=== PATIENT | male | born 1950 | race Caucasian/White ===

== ENCOUNTER 2017-04-28 16:01 | Inpatient (IN) | payer OTHER, MEDICAID ==
[~2017-04-28] VITALS: Ht 177.8 cm; Wt 76.0 kg
[2017-04-28] MEDS ORDERED: VANCOMYCIN 1 GM (PMX) 250 ML IVPB SCH (18:30)
[2017-04-28] MEDS ORDERED: PIPER-TAZO 3.375 GM IV (PMX) 100 ML IVPB ONE (18:30)
[2017-04-28 18:57] LABS: ADD SCAN DIFF NO
[2017-04-28 19:00] LABS: BASOPHILS % 0.5 % (0.0-2.0); EOSINOPHILS # 0.2 10^3/ul (0.0-0.5); EOSINOPHILS % 2.6 % (0.0-7.0); HEMATOCRIT 48.9 % (42.0-52.0); LYMPHOCYTES # 2.4 10^3/ul (0.8-2.9); MEAN CORPUSCULAR HEMOGLOBIN 30.5 pg (29.0-33.0); MEAN CORPUSCULAR HGB CONC 32.7 g/dl (32.0-37.0); MEAN CORPUSCULAR VOLUME 93.1 fl (82.0-101.0); MEAN PLATELET VOLUME 9.9 fl (7.4-10.4); MONOCYTE # 0.5 10^3/ul (0.3-0.9); MONOCYTES % 6.9 % (0.0-11.0); NEUTROPHIL # 4.5 10^3/ul (1.6-7.5); NEUTROPHILS % 58.6 % (39.0-77.0); PLATELET COUNT 229 10^3/UL (140-415); RED BLOOD COUNT 5.25 10^6/ul (4.70-6.10); RED CELL DISTRIBUTION WIDTH 12.7 % (11.5-14.5); WHITE BLOOD COUNT 7.7 10^3/ul (4.8-10.8)
[2017-04-28 19:13] LABS: C-REACTIVE PROTEIN 1.8 mg/dl (0.0-0.9); CALCIUM 9.5 mg/dl (8.4-10.2); CREATININE 1.16 mg/dl (0.61-1.24)
--- NOTE | 2017-04-28 19:26 | ERA ---
ER Documentation Chief Complaint Date/Time DATE: 04/28/17 TIME: 19:23 Chief Complaint RIGHT FOOT/ANKLE SWELLING/REDNESS/PAIN X10 DAYS HPI This a pleasant 67-year-old male with a history of HIV. The patient said 3 weeks ago he had blood work and showed his viral load was undetectable and he had a "good" CD4 count. Patient was vacationing in [facility] last week when he accidentally stubbed his right toe on a chair. He developed a slight blister which he popped. The next day he subsequently had some erythema to the toe that has spread up into his right foot and distal leg. The patient was seen in [place] and received shots of Rocephin intramuscularly for 5 days in a row as well as being placed on Cipro. The patient states that he has never had a documented fever does not have any shortness of breath chest pain and has only mild pain in the leg. He does have erythema and swelling to the right foot and distal leg ROS All systems reviewed and are negative except as per history of present illness. Allergies Allergies: Coded Allergies: No Known Allergy (Unverified , 04/28/17) PMhx/Soc Medical and Surgical Hx: pt denies Medical Hx, pt denies Surgical Hx Hx Miscellaneous Medical Probl: Yes (HIV +) Hx Alcohol Use: No Hx Substance Use: No FmHx Family History: No coronary disease Physical Exam Vitals Vital Signs Date Time Temp Pulse Resp B/P Pulse Ox O2 Delivery O2 Flow Rate FiO2 04/28/17 19:06 63 19 157/84 98 Room Air 04/28/17 16:05 97.9 85 20 157/74 95 Physical Exam Const: Well-developed, well-nourished Head: Atraumatic, normocephalic Eyes: Normal Conjunctiva, PERRLA, EOMI, normal sclera, no nystagmus ENT: Normal External Ears, Nose and Mouth, moist mucus membranes. Neck: Full range of motion. No meningismus, no lymphadenopathy. Resp: Clear to auscultation bilaterally, no wheezing, rhonchi, rales Cardio: Regular rate and rhythm, no murmurs, S1 S2 present Abd: Soft, non tender x 4, non distended. Normal bowel sounds, no guarding or rebound, no pulsitile abdominal masses or bruits Skin: No petechiae or rashes, no ecchymosis , no maculopapular rash Back: No midline or flank tenderness Ext: No cyanosis, or edema, FROM x 4, the right distal great toe has a scab-like lesion at the tip. The right foot and distal leg erythema with swelling and warmth consistent with cellulitis, neurovascularly intact x 4 Neur: Awake and alert, STR 5/5 x 4, sensation intact x 4, no focal findings, cerebellum intact Psych: Normal Mood and Affect Result Diagram: 04/28/17183304/28/171833 Results 24 hrs Laboratory Tests Test 04/28/17 18:34 White Blood Count 7.710^3/ul Red Blood Count 5.2510^6/ul Hemoglobin 16.0g/dl Hematocrit 48.9% Mean Corpuscular Volume 93.1fl Mean Corpuscular Hemoglobin 30.5pg Mean Corpuscular Hemoglobin Concent 32.7g/dl Red Cell Distribution Width 12.7% Platelet Count 48685^3/UL Mean Platelet Volume 9.9fl Neutrophils % 58.6% Lymphocytes % 31.0% Monocytes % 6.9% Eosinophils % 2.6% Basophils % 0.5% Nucleated Red Blood Cells % 0.0/100WBC Neutrophils # 4.510^3/ul Lymphocytes # 2.410^3/ul Monocytes # 0.510^3/ul Eosinophils # 0.210^3/ul Basophils # 0.010^3/ul Nucleated Red Blood Cells # 0.010^3/ul Erythrocyte Sedimentation Rate 18mm/Hr Sodium Level 141mmol/L Potassium Level 4.0mmol/L Chloride Level 105mmol/L Carbon Dioxide Level 27mmol/L Anion Gap 13 Blood Urea Nitrogen 16mg/dl Creatinine 1.16mg/dl Glucose Level 86mg/dl Calcium Level 9.5mg/dl C-Reactive Protein 1.8mg/dl Current Medications Medications (Trade) Dose Ordered Sig/Tierney Route PRN Reason Start Time Stop Time Status Last Admin Dose Admin Vancomycin HCl 250 ml @ 125 mls/hr ONCE IVPB 04/28/17 18:30 04/28/17 20:29 DC 04/28/17 19:35 Piperacillin Sod/ Tazobactam Sod (Zosyn 3.375gm/ 100 ml (Pmx)) 100 ml @ 200 mls/hr ONCE ONCE IVPB 04/28/17 18:30 04/28/17 18:59 DC 04/28/17 18:44 Procedures/MDM Patient received intravenous Rocephin and vancomycin for cellulitis. Patient is felt outpatient therapy on Cipro as well as getting Rocephin for 5 days in a row. I will put him in the hospital for intravenous antibiotic therapy X-rays of the right foot and ankle demonstrate soft tissue swelling but no gas in the soft tissue per radiology Departure Diagnosis: Primary Impression: Cellulitis of right lower extremity Condition: Stable DEXTER TAN DO Apr 28, 2017 19:25
--- NOTE | 2017-04-28 20:33 | RADRPT ---
PROCEDURE: XR Right Ankle. CLINICAL INDICATION: Right ankle pain. TECHNIQUE: 3 views. Frontal, lateral, and oblique. COMPARISON: None. FINDINGS: There is no fracture or dislocation. There is diffuse soft tissue swelling. Articular surfaces are intact. There is no lytic or blastic lesion. There is no radiopaque foreign body. IMPRESSION: 1. Diffuse soft tissue swelling. 2. Otherwise normal images of the right ankle. RPTAT: QQ .Adrian Rivera MD, MD Date Time Electronically viewed and signed by .Adrian Rivera MD, on 04/28/2017 20:32 .R/
--- NOTE | 2017-04-28 20:33 | RADRPT ---
PROCEDURE: XR Right Foot. CLINICAL INDICATION: Right foot pain. TECHNIQUE: Three views. Frontal, lateral, and oblique. COMPARISON: None. FINDINGS: There is no fracture or dislocation. There is diffuse soft tissue swelling. Articular surfaces are intact. There is no lytic or blastic lesion. There is no radiopaque foreign body. IMPRESSION: 1. Diffuse soft tissue swelling. 2. Otherwise normal images of the right foot. RPTAT: QQ .Adrian Rivera MD, MD Date Time Electronically viewed and signed by .Adrian Rivera MD, on 04/28/2017 20:33 .R/
--- NOTE | 2017-04-28 20:50 | HP ---
Date/Time of Note Date/Time of Note DATE: 04/28/17 TIME: 20:49 Assessment/Plan VTE Prophylaxis VTE Prophylaxis Intervention: LMWH Assessment/Plan Chief Complaint/Hosp Course This is a 67-year-old male being admitted to the [facility] floor for: #1 right lower extremity cellulitis: There appears to be an abrasion of the right big toe which which possibly could be the entry point for the infection. He was previously treated with outpatient antibiotics with no resolution. At the current time will continue the patient on vancomycin and clindamycin IV. Will consult infectious disease for further antibiotic management. #2 HIV: Patient states he is compliant with medications and apparently has a good CD4 count according to him. He has a follow-up appointment with his HIV doctor on Sunday. At the current time will order a CD4 count and HIV PCR load. Continue home medications and consult infectious disease. #3 hypertension: Continue home medications. #4 DVT and GI prophylaxis: Lovenox, Protonix Further treatment strategy will be implemented as per the clinical course. Problems: HPI/ROS Admit Date/Time Admit Date/Time Hx of Present Illness Chief complaint: Right foot infection This a pleasant 67-year-old male with a history of HIV. The patient said 3 weeks ago he had blood work and showed his viral load was undetectable and he had a "good" CD4 count. Patient was vacationing in [facility] last week when he accidentally stubbed his right toe on a chair. He developed a slight blister which he popped. The next day he subsequently had some erythema to the toe that has spread up into his right foot and distal leg. The patient was seen in [place] and received shots of Rocephin intramuscularly for 5 days in a row as well as being placed on Cipro. The patient states that he has never had a documented fever does not have any shortness of breath chest pain and has only mild pain in the leg. My examination he does have erythema and swelling to the distal right lower extremity as well as foot. Allergies: NKDA Medications: See SHA SALEH Const: As per HPI Eyes : No pain discharge or redness or change in visual acuity ENT: No pain, sore throat, congestion, congestion, dysphagia or discharge Respiratory: No shortness of breath, cough, sputum, wheezing, or pleuritic pain Cardiovascular: No chest pain, palpitation, PND, or edema GI : no change in appetite, abdominal pain, nausea, vomiting, diarrhea, constipation, or change in the color his stool Genitourinary: No dysuria, hematuria, flank pain , discharge or CVA tenderness Musculoskeletal: As per HPI Skin: As per HPI Neuro: No headache, dizziness, syncope, seizure, focal weakness Endocrine: No polyuria, polydipsia, temperature intolerance Psych: No hallucination, depression, anxiety or suicidal ideation PMH/Family/Social Past Medical History HIV, hypertension Past Surgical History Hernia repair Family History Significant Family History: no pertinent family hx Social History Alcohol Use: none Smoking Status: Current every day smoker (6 cigarettes per day 40 years) Drug Use: none Exam/Review of Systems Vital Signs Vitals Vital Signs Date Time Temp Pulse Resp B/P Pulse Ox O2 Delivery O2 Flow Rate FiO2 04/28/17 19:06 63 19 157/84 98 Room Air 04/28/17 16:05 97.9 Exam Exam General: Patient is well-developed well-nourished The patient is alert oriented -3 lying comfortably in bed. HEENT: Atraumatic, normocephalic. The pupils are equal, round and reactive. Extraocular motor are intact Neck: Supple with full range of motion. No rigidity or meningismus Chest: Nontender Lungs: Clear to auscultation bilaterally no crackles rales or wheezing Heart: Normal S1-S2, Regular rhythm and rate. No murmur, S3, or S4 Abdomen: Soft , nontender, nondistended , bowel sounds are present. No guarding no rebound tenderness , No masses or organomegaly. No costovertebral temporal angle mass Extremities: Right lower extremity: Distal leg redness swelling noted, right foot anterior aspect swelling and redness noted, abrasion/lesion of the big toe no bleeding or pus noted. Neurologic: Normal mental status, speech normal, cranial nerves II through XII are intact, motor and sensory are intact, no focal weakness Skin: Right lower extremity: Distal leg redness swelling noted, right foot anterior aspect swelling and redness noted, abrasion/lesion of the big toe no bleeding or pus noted. Additional Comments PROCEDURE: XR Right Ankle. CLINICAL INDICATION: Right ankle pain. TECHNIQUE: 3 views. Frontal, lateral, and oblique. COMPARISON: None. FINDINGS: There is no fracture or dislocation. There is diffuse soft tissue swelling. Articular surfaces are intact. There is no lytic or blastic lesion. There is no radiopaque foreign body. IMPRESSION: 1. Diffuse soft tissue swelling. 2. Otherwise normal images of the right ankle. RPTAT: QQ .Adrian Rivera MD, Date Time Electronically viewed and signed by .Adrian Rivera MD, on 04/28/2017 20:32 PROCEDURE: XR Right Foot. CLINICAL INDICATION: Right foot pain. TECHNIQUE: Three views. Frontal, lateral, and oblique. COMPARISON: None. FINDINGS: There is no fracture or dislocation. There is diffuse soft tissue swelling. Articular surfaces are intact. There is no lytic or blastic lesion. There is no radiopaque foreign body. IMPRESSION: 1. Diffuse soft tissue swelling. 2. Otherwise normal images of the right foot. RPTAT: QQ .Adrian Rivera MD, MD Date Time Electronically viewed and signed by .Adrian Rivera MD, on 04/28/2017 20:33 Labs Result Diagram: 04/28/17 1834 04/28/17 1834 CLAUDE BROWN Apr 28, 2017 20:50
[2017-04-28] MEDS ORDERED: BISACODYL (EC) 5 MG TAB PO PRN (21:00)
[2017-04-28] MEDS ORDERED: DOCUSATE SODIUM 100 MG CAP PO PRN (21:00)
[2017-04-28] MEDS ORDERED: NACL 0.9% 3 ML SYG IV SCH (21:00)
[2017-04-28] MEDS ORDERED: HYDROmorphONE 1 MG/ML SYG IV PRN (21:00)
[2017-04-28] MEDS ORDERED: VANCOMYCIN IV PER PHARMACY XX SCH (21:00)
[2017-04-28] MEDS ORDERED: ACETAMINOPHEN 325 MG TAB PO PRN ×2 (21:00)
[2017-04-28] MEDS ORDERED: ONDANSETRON 4 MG INJ IV PRN ×2 (21:00)
[2017-04-28] MEDS: ENOXAPARIN 40 MG/0.4 ML SYG SC SCH (21:31)
[2017-04-28] MEDS: PIPER-TAZO 3.375 GM IV (PMX) 100 ML IVPB SCH (23:35)
[2017-04-29 05:46] LABS: ADD SCAN DIFF NO
[2017-04-29 05:48] LABS: BASOPHIL # 0.1 10^3/ul (0.0-0.1); BASOPHILS % 0.7 % (0.0-2.0); EOSINOPHILS # 0.2 10^3/ul (0.0-0.5); EOSINOPHILS % 2.3 % (0.0-7.0); HEMATOCRIT 48.8 % (42.0-52.0); LYMPHOCYTES # 2.2 10^3/ul (0.8-2.9); LYMPHOCYTES % 30.7 % (15.0-51.0); MEAN CORPUSCULAR HEMOGLOBIN 30.1 pg (29.0-33.0); MEAN CORPUSCULAR HGB CONC 32.8 g/dl (32.0-37.0); MEAN CORPUSCULAR VOLUME 91.9 fl (82.0-101.0); MEAN PLATELET VOLUME 9.8 fl (7.4-10.4); MONOCYTE # 0.5 10^3/ul (0.3-0.9); MONOCYTES % 6.2 % (0.0-11.0); NEUTROPHIL # 4.3 10^3/ul (1.6-7.5); NEUTROPHILS % 59.7 % (39.0-77.0); PLATELET COUNT 212 10^3/UL (140-415); RED BLOOD COUNT 5.31 10^6/ul (4.70-6.10); RED CELL DISTRIBUTION WIDTH 12.7 % (11.5-14.5); WHITE BLOOD COUNT 7.2 10^3/ul (4.8-10.8)
[2017-04-29 06:05] VITALS: BP 150/80; RESP 20
[2017-04-29 06:12] VITALS: Ht 177.8 cm; Wt 76.0 kg
[2017-04-29 06:21] LABS: ALBUMIN 4.4 g/dl (3.3-4.9); ALBUMIN/GLOBULIN RATIO 1.33; BILIRUBIN,INDIRECT 0.2 mg/dl (0-1.1); BILIRUBIN,TOTAL 0.2 mg/dl (0.2-1.3); CALCIUM 9.3 mg/dl (8.4-10.2); CREATININE 1.04 mg/dl (0.61-1.24); TOTAL PROTEIN 7.7 g/dl (6.1-8.1)
[2017-04-29] MEDS: PIPER-TAZO 3.375 GM IV (PMX) 100 ML IVPB SCH ×3 (06:38→17:32)
[2017-04-29] MEDS: PANTOPRAZOLE 40 MG INJ IV SCH (06:38)
[2017-04-29] MEDS ORDERED: VANCOMYCIN 1.5 GM in SOD CHLORIDE 0.9% 250 ML IVPB SCH ×2 (08:00→09:30)
[2017-04-29 08:15] VITALS: BP 140/75; RESP 16
[2017-04-29] MEDS: ENOXAPARIN 40 MG/0.4 ML SYG SC SCH (09:59)
[2017-04-29] MEDS ORDERED: VANCOMYCIN 1 GM in NS 250 ML IVPB SCH (10:00)
[2017-04-29] MEDS ORDERED: CALC-143 PO (10:22)
[2017-04-29] MEDS ORDERED: LOSA100T7 PO (10:25)
[2017-04-29] MEDS ORDERED: OMEG1CAP31 PO (10:25)
[2017-04-29] MEDS ORDERED: DOLU50TA PO (10:29)
[2017-04-29] MEDS ORDERED: MULTI PO (10:29)
[2017-04-29] MEDS ORDERED: EMTR1TAB16 PO (10:29)
[2017-04-29] MEDS ORDERED: VANCOMYCIN 1.25 GM in SOD CHLORIDE 0.9% 250 ML IVPB SCH (10:30)
[2017-04-29] MEDS: LOSARTAN 50 MG TAB PO SCH (11:30)
--- NOTE | 2017-04-29 11:46 | PN ---
Date/Time of Note Date/Time of Note DATE: 04/29/17 TIME: 11:44 Assessment/Plan VTE Prophylaxis VTE Prophylaxis Intervention: other Lines/Catheters IV [facility] Saline Lock Urinary Cath still in place: No Assessment/Plan Problems: (1) Cellulitis of right lower extremity Status: Acute Comment: Continue on vancomycin. Expect good outcome. Infectious disease consult pending (2) Essential hypertension Status: Chronic Comment: Continue with his losartan well-controlled (3) HIV disease Status: Chronic Comment: I have entered into the pharmacy the names of his HAART medications. Pharmacy will help with translating this into formulary equivalent Subjective 24 Hr Interval Summary Free Text/Dictation Patient reports that he feels that his leg is improving. Constitutional: no complaints (No fevers chills or sweats) Respiratory: no complaints Cardiovascular: no complaints Gastrointestinal: no complaints Exam/Review of Systems Vital Signs Vitals Vital Signs Date Time Temp Pulse Resp B/P Pulse Ox O2 Delivery O2 Flow Rate FiO2 04/29/17 08:15 98.6 60 16 140/75 96 04/29/17 06:02 Room Air Exam Constitutional: alert, oriented Neck: non-tender, supple Respiratory: clear to auscultation, normal air movement Cardiovascular: nl pulses, regular rate and rhythm Results Result Diagram: 04/29/17 0530 04/29/17 0530 Results 24 hrs Laboratory Tests Test 04/28/17 18:34 04/29/17 05:30 White Blood Count 7.7 7.2 Red Blood Count 5.25 5.31 Hemoglobin 16.0 16.0 Hematocrit 48.9 48.8 Mean Corpuscular Volume 93.1 91.9 Mean Corpuscular Hemoglobin 30.5 30.1 Mean Corpuscular Hemoglobin Concent 32.7 32.8 Red Cell Distribution Width 12.7 12.7 Platelet Count 229 212 Mean Platelet Volume 9.9 9.8 Neutrophils % 58.6 59.7 Lymphocytes % 31.0 30.7 Monocytes % 6.9 6.2 Eosinophils % 2.6 2.3 Basophils % 0.5 0.7 Nucleated Red Blood Cells % 0.0 0.0 Neutrophils # 4.5 4.3 Lymphocytes # 2.4 2.2 Monocytes # 0.5 0.5 Eosinophils # 0.2 0.2 Basophils # 0.0 0.1 Nucleated Red Blood Cells # 0.0 0.0 Erythrocyte Sedimentation Rate 18 Sodium Level 141 141 Potassium Level 4.0 4.0 Chloride Level 105 107 Carbon Dioxide Level 27 24 Anion Gap 13 14 Blood Urea Nitrogen 16 13 Creatinine 1.16 1.04 Glucose Level 86 124 Calcium Level 9.5 9.3 C-Reactive Protein 1.8 H Total Bilirubin 0.2 Direct Bilirubin 0.00 Indirect Bilirubin 0.2 Aspartate Amino Transf (AST/SGOT) 25 Alanine Aminotransferase (ALT/SGPT) 45 Alkaline Phosphatase 75 Total Protein 7.7 Albumin 4.4 Globulin 3.30 H Albumin/Globulin Ratio 1.33 Medications Medications Current Medications Ondansetron HCl (Zofran Inj) 4 mg Q6H PRN IV NAUSEA AND/OR VOMITING; Start 04/28 at 21:00 Acetaminophen (Tylenol Tab) 650 mg Q6H PRN PO PAIN LEVEL 1-3 OR FEVER; Start at 21:00 Hydromorphone HCl (Dilaudid) 0.5 mg Q4H PRN IV SEVERE PAIN LEVEL 7-10; Start at 21:00 Docusate Sodium (Colace) 100 mg Q12H PRN PO CONSTIPATION; Start 04/28/17 at 21: 00 Bisacodyl (Dulcolax) 5 mg DAILY PRN PO CONSTIPATION; Start 04/28/17 at 21:00 Pantoprazole (Protonix Iv) 40 mg DAILY@06 IV Last administered on 04/29/17 06: 38; Admin Dose 40 MG; Start 04/29/17 at 06:00 Enoxaparin Sodium 40 mg 40 mg DAILY SC Last administered on 04/29/17 09:59; Admin Dose 40 MG; Start 04/28/17 at 21:00 Piperacillin Sod/ Tazobactam Sod 100 ml @ 200 mls/hr Q6 IVPB Last administered on 04/29/17 06:38; Admin Dose 200 MLS/HR; Start 04/29/17 at 00:00 Vancomycin HCl 1.25 gm/Sodium Chloride 250 ml @ 83.333 mls/ hr Q12H IVPB ; Start 04/29/17 at 21:30 Vancomycin HCl/ Sodium Chloride (Vancocin/NS) 250 ml @ 83.333 mls/ hr NOW IVPB Last administered on 04/29/17 09:28; Admin Dose 83.333 MLS/HR; Start 04/29/17 at 09:30; Stop 04/29/17 at 18:00 Losartan Potassium (Cozaar) 100 mg DAILY PO ; Start 04/29/17 at 11:30; Status UNV Miscellaneous Information (* Miscellaneous Pharmacy Order) Tivicay, 50 mg and desc... ONCE XX ; Start 04/29/17 at 11:30; Status UNV LEE MONCADA MD Apr 29, 2017 11:46
[2017-04-29 15:05] VITALS: BP 149/74; RESP 16
[2017-04-29 19:56] VITALS: BP 112/59; RESP 17
[2017-04-29] MEDS: VANCOMYCIN 1.25 GM in SOD CHLORIDE 0.9% 250 ML IVPB SCH (20:45)
[2017-04-30] MEDS: PIPER-TAZO 3.375 GM IV (PMX) 100 ML IVPB SCH ×3 (00:45→12:36)
[2017-04-30 02:28] VITALS: BP 120/58; RESP 17
[2017-04-30] MEDS: PANTOPRAZOLE 40 MG INJ IV SCH (05:56)
[2017-04-30 07:15] VITALS: BP 141/84; RESP 16
[2017-04-30] MEDS: LOSARTAN 50 MG TAB PO SCH (08:51)
[2017-04-30] MEDS: ENOXAPARIN 40 MG/0.4 ML SYG SC SCH (08:53)
[2017-04-30] MEDS: VANCOMYCIN 1.25 GM in SOD CHLORIDE 0.9% 250 ML IVPB SCH (08:57)
[2017-04-30] MEDS ORDERED: DOLUTEGRAVIR SODIUM 50 MG TABLET PO SCH (11:00)
[2017-04-30] MEDS ORDERED: DESCOVY PO SCH (11:00)
--- NOTE | 2017-04-30 13:07 | CONS ---
Date/Time of Note Date/Time of Note DATE: 04/30/17 TIME: 13:07 Assessment/Plan Assessment/Plan Chief Complaint/Hosp Course No acute events. Patient is alert feels good looks comfortable no fevers Antibiotics Vanco Zosyn Physical examination: Well-nourished well-developed elderly man who is alert in no distress. Head atraumatic normocephalic sclera nonicteric neck is supple chest rise symmetrical breath sounds clear. S1-S2. Abdomen soft, bowel tones present. Extremities with right foot and lower part of the leg erythema and swelling. Assessment: 1. Right lower extremity cellulitis 2. HIV disease, well controlled on Descovy and Trivicay 3. Hypertension Plan: Check right lower extremity ultrasound, change Zosyn to oral Levaquin, continue vancomycin, keep right lower extremity elevated on 3 pillows at all time Discussed with patient Problems: Consultation Date/Type/Reason Admit Date/Time Apr 28, 2017 at 20:45 Initial Consult Date Type of Consultation: ID Exam/Review of Systems Vital Signs Vitals Vital Signs Date Time Temp Pulse Resp B/P Pulse Ox O2 Delivery O2 Flow Rate FiO2 04/30/17 07:15 97.7 58 16 141/84 95 04/29/17 06:02 Room Air Intake and Output 04/29/17 04/29/17 04/30/17 15:00 23:00 07:00 Intake Total 100 ml 1650 ml 850 ml Balance 100 ml 1650 ml 850 ml Results Result Diagram: 04/29/17 0530 04/29/17 0530 Medications Medications Current Medications Ondansetron HCl (Zofran Inj) 4 mg Q6H PRN IV NAUSEA AND/OR VOMITING; Start 04/28 at 21:00 Acetaminophen (Tylenol Tab) 650 mg Q6H PRN PO PAIN LEVEL 1-3 OR FEVER; Start at 21:00 Hydromorphone HCl (Dilaudid) 0.5 mg Q4H PRN IV SEVERE PAIN LEVEL 7-10; Start at 21:00 Docusate Sodium (Colace) 100 mg Q12H PRN PO CONSTIPATION; Start 04/28/17 at 21: 00 Bisacodyl (Dulcolax) 5 mg DAILY PRN PO CONSTIPATION; Start 04/28/17 at 21:00 Pantoprazole (Protonix Iv) 40 mg DAILY@06 IV Last administered on 04/30/17 05: 56; Admin Dose 40 MG; Start 04/29/17 at 06:00 Enoxaparin Sodium 40 mg 40 mg DAILY SC Last administered on 04/30/17 08:53; Admin Dose 40 MG; Start 04/28/17 at 21:00 Piperacillin Sod/ Tazobactam Sod 100 ml @ 200 mls/hr Q6 IVPB Last administered on 04/30/17 12:36; Admin Dose 200 MLS/HR; Start 04/29/17 at 00:00 Vancomycin HCl/ Sodium Chloride (Vancocin/NS) 250 ml @ 83.333 mls/ hr Q12H IVPB Last administered on 04/30/17 08:57; Admin Dose 83.333 MLS/HR; Start 04/29 at 21:30 Losartan Potassium (Cozaar) 100 mg DAILY PO Last administered on 04/30/17 08: 51; Admin Dose 100 MG; Start 04/29/17 at 11:30 Dolutegravir Sodium (Tivicay) 50 mg DAILY PO Last administered on 04/30/17 12: 35; Admin Dose 50 MG; Start 04/30/17 at 11:00 Miscellaneous Information Patients own medicat... BID@10,16 XX ; Start 04/30/17 at 10:00 Patient Own Medication 1 ea DAILY PO Last administered on 04/30/17 12:35; Admin Dose 1 EA; Start 04/30/17 at 11:00 Miscellaneous Information (*Rx Drug Level Order Reminder*) VANCOMYCIN TROUGH AT 2030 ONCE ONCE XX ; Start 04/30/17 at 20:30; Stop 04/30/17 at 20:31 PRASHANT PARKER NP Apr 30, 2017 13:07
[2017-04-30] MEDS ORDERED: LEVOFLOXACIN 500 MG TAB PO ONE (13:30)
[2017-04-30 13:55] LABS: LYMPHOCYTE - % CD4 (HELPER) 34 % (30-61); LYMPHOCYTE - %CD8 (SUPPRESSOR) 36 % (12-42); LYMPHOCYTE - ABSOLUTE CD4 906 cells/uL (490-1740); LYMPHOCYTE - ABSOLUTE CD8 941 cells/uL (180-1170); LYMPHOCYTE - CD4/CD8 RATIO 0.96 (0.86-5.00)
[2017-04-30 14:00] VITALS: BP 149/72; RESP 16
--- NOTE | 2017-04-30 15:36 | RADRPT ---
PROCEDURE: US Lower extremity Venous. CLINICAL INDICATION: Right leg edema TECHNIQUE: Multiple sonographic images of the right lower extremity deep venous system was obtaine d utilizing grayscale, color-flow, compressive sonography and doppler imaging with augmentation. Th e images were reviewed on a PACS workstation. COMPARISON: None. FINDINGS: There is normal compressibility and flow within the right common femoral, femoral, posterior tibial, peroneal and popliteal veins. RPTAT: AA IMPRESSION: No sonographic evidence for deep venous thrombosis. .Reuben Hall MD, MD Date Time Electronically viewed and signed by .Reuben Hall MD, on 04/30/2017 15:36 .S/
[2017-04-30] MEDS ORDERED: CEPH500C PO (16:25)
--- NOTE | 2017-04-30 16:34 | DS ---
Date/Time of Note Date/Time of Note DATE: 04/30/17 TIME: 16:27 Discharge Summary Admission/Discharge Info Admit Date/Time Apr 28, 2017 at 20:45 Discharge Date/Time Discharge Diagnosis 1 right lower extremity cellulitis, improving, follow up with PCP 2 HIV: continue treatment 3. hypertension: controlled Patient Condition: Stable Hx of Present Illness This a pleasant 67-year-old male with a history of HIV. The patient said 3 weeks ago he had blood work and showed his viral load was undetectable and he had a "good" CD4 count. Patient was vacationing in [facility] last week when he accidentally stubbed his right toe on a chair. He developed a slight blister which he popped. The next day he subsequently had some erythema to the toe that has spread up into his right foot and distal leg. The patient was seen in [place] and received shots of Rocephin intramuscularly for 5 days in a row as well as being placed on Cipro. The patient states that he has never had a documented fever does not have any shortness of breath chest pain and has only mild pain in the leg. My examination he does have erythema and swelling to the distal right lower extremity as well as foot. Hospital Course Patient is treated with antibiotics with zosyn and vancomycin, symptoms improved. Patient will be discharged with keflex and instructed to keep right lower extremity elevated.. Home Meds Active Scripts Cephalexin* (Cephalexin*) 500 Mg Capsule, 500 MG PO Q6 for 10 Days, #28 CAP Prov:KENNETH LUU MD 04/30/17 Reported Medications Multivitamins* (Theragran*) 1 Tab Tab, 1 TAB PO DAILY, TAB 04/29/17 Emtricitabine/Tenofov Alafenam (Descovy 200-25 mg Tablet) 1 Each Tablet, 1 EACH PO, TAB 04/29/17 Dolutegravir Sodium (Tivicay) 50 Mg Tablet, 50 MG PO DAILY, TAB 04/29/17 Losartan Potassium* (Losartan Potassium*) 100 Mg Tablet, 100 MG PO DAILY, TAB 04/29/17 Zephyr-3/Dha/Epa/Fish Oil (FISH OIL 1,000 MG SOFTGEL) 1 Each Capsule, 1 EACH PO for 1 Day, CAP 04/29/17 Calcium Citrate/Vitamin D (Citracal-Vitamin D 200 MG-250) 1 Each Tablet, 1 EACH PO BID, TAB 04/29/17 Follow-up Plan follow up with PCP in one week Primary Care Provider Care Physician KENNETH Stephenson MD Apr 30, 2017 16:34
[2017-04-30] MEDS ORDERED: VANCOMYCIN 1.25 GM in SOD CHLORIDE 0.9% 250 ML IVPB SCH (18:00)
[2017-04-30 20:35] VITALS: BP 160/80; RESP 19
[2017-04-30] MEDS ORDERED: hydrALAzine 20 MG INJ IV STA (20:56)
[2017-04-30 21:49] VITALS: BP 155/78; PULSE 65
[2017-05-01] MEDS ORDERED: LEVOFLOXACIN 500 MG TAB PO SCH (06:00)
[2017-05-01] MEDS ORDERED: PANTOPRAZOLE (EC) 40 MG TAB PO SCH (06:00)
== END 2017-04-30 21:55 | disposition home or self-care (01) | DRG 977 ==
LOC: FTE 16:01 → PP2 20:45
PROVIDERS: ADMIT Family Medicine; ATTEND Family Medicine
DX: B20 Human immunodeficiency virus [HIV] disease (principal); I10 Essential (primary) hypertension; L03.115 Cellulitis of right lower limb; Z72.0 Tobacco use
CPT/HCPCS: 73630; 80048; 80053; 85025; 85651; 86140; 86360; 87040; 87536; 93971; 96365; 96366; 96372; 96375; C9113; J0360; J1650; J2543; J3370; J7050